=== PATIENT | male | born 1985 ===

== ENCOUNTER 2017-02-20 13:35 | Emergency (ER) | payer OTHER ==
[2017-02-20] MEDS ORDERED: DiphenhydrAMINE 50 mg/ml Inj IVP STA (14:43)
--- NOTE | 2017-02-20 14:43 | C.PDOC ---
History Of Present Illness 32 yr old male presents to the ER with complaint of feeling dizzy, nausea and few episodes of diarrhea for 5 days. Patient denies fever, vision changes, vomiting, headache, weakness or numbness, Time Seen by Provider: 02/20/17 14:12 Chief Complaint (Nursing): Dizziness/Lightheaded History Per: Patient History/Exam Limitations: no limitations Onset/Duration Of Symptoms: Days (5) Current Symptoms Are (Timing): Still Present Past Medical History Reviewed: Historical Data, Nursing Documentation, Vital Signs Vital Signs: Last Vital Signs Temp 98.2 F 02/20/17 14:00 Pulse 63 02/20/17 14:00 Resp 20 02/20/17 14:00 BP 132/81 02/20/17 14:00 Pulse Ox 96 02/20/17 14:45 Family History: States: No Known Family Hx - Social History Hx Alcohol Use: Yes Hx Substance Use: No Review Of Systems Except As Marked, All Systems Reviewed And Found Negative. Constitutional: Negative for: Fever Eyes: Negative for: Vision Change Gastrointestinal: Positive for: Nausea, Diarrhea. Negative for: Vomiting Neurological: Positive for: Dizziness. Negative for: Weakness, Numbness, Headache Physical Exam - Physical Exam Appears: Non-toxic, No Acute Distress Skin: Warm, Dry, No Rash Head: Atraumatic, Normacephalic Eye(s): bilateral: PERRL, EOMI Ear(s): Bilateral: Normal Oral Mucosa: Moist Chest: Symmetrical, No Tenderness Cardiovascular: Rhythm Regular, No Murmur Respiratory: Normal Breath Sounds, No Rales, No Rhonchi, No Wheezing Extremity: Normal ROM, No Swelling Neurological/Psych: Oriented x3, Normal Speech, Normal Motor ED Course And Treatment - Laboratory Results Result Diagrams: 02/20/17 15:09 02/20/17 15:09 O2 Sat by Pulse Oximetry: 96 Medical Decision Making Medical Decision Making: PLAN: * CBC * CMP * Benadryl IVP * Toradol IVP * Reglan IVP Disposition - Disposition Referrals: [facility] [Outside] Disposition: HOME/ ROUTINE Disposition Time: 16:27 Condition: GOOD Additional Instructions: Follow up with the medical doctor within 1-2 days. Return if worsened. 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 - Scribe Statement The provider has reviewed the documentation as recorded by the Scribe Juliane Rojo All medical record entries made by the [employer] were at my direction and personally dictated by me. I have reviewed the chart and agree that the record accurately reflects my personal performance of the history, physical exam, medical decision making, and the department course for this patient. I have also personally directed, reviewed, and agree with the discharge instructions and disposition.
[2017-02-20] MEDS ORDERED: DiphenhydrAMINE 50 mg/ml Inj ONE (15:03)
[2017-02-20 15:12] LABS: BASO # 0.1 K/uL (0.0-0.2); BASO % 1.4 % (0.0-2.0); EOS # 0.3 K/uL (0.0-0.7); EOS % 2.7 % (0.0-4.0); HEMATOCRIT 45.3 % (35.0-51.0); LYMPH # 3.2 K/uL (1.0-4.3); LYMPH % 34.7 % (20.0-40.0); MEAN CELL VOLUME 86.2 fL (80.0-94.0); MEAN CORPUSCULAR HGB CONC 33.6 g/dL (33.0-37.0); MEAN PLATELET VOLUME 9.6 fL (7.2-11.7); MONO # 0.6 K/uL (0.0-0.8); RED CELL DISTRIBUTION WIDTH 13.4 % (11.5-14.5); WHITE BLOOD COUNT 9.3 K/uL (4.8-10.8)
[2017-02-20 15:24] LABS: CHLORIDE 105 mmol/L (98-107)
[2017-02-20 15:25] LABS: POTASSIUM 3.8 mmol/L (3.6-5.2); SODIUM 140 mmol/L (132-148)
[2017-02-20 15:27] LABS: ALB/GLOB RATIO 1.3 (1.0-2.1); ALKALINE PHOSPHATASE 156 U/L (38-126); AST/SGOT 68 U/L (17-59); BILIRUBIN,TOTAL 0.6 mg/dL (0.2-1.3); CARBON DIOXIDE 26 mmol/L (22-30); GFR AFRICAN-AMERICAN > 60
[2017-02-20 15:28] LABS: ALT/SGPT 52 U/L (21-72); BLOOD UREA NITROGEN 13 mg/dL (9-20); GLUCOSE,RANDOM 104 mg/dL (75-110)
[2017-02-20 16:47] VITALS: BP 128/78; PULSE 68; RESP 18; TEMP 98.4; O2SAT 97
== END 2017-02-20 16:48 | disposition home or self-care (01) ==
LOC: C.ER 13:35
DX: R42 Dizziness and giddiness (principal)
CPT/HCPCS: 80053; 85025; 96374; 96375; 99284; J1200; J1885; J2765